=== PATIENT | female | born 1975 | race Caucasian/White ===

== ENCOUNTER 2019-09-08 18:46 | Emergency (ER) | payer BC ==
[~2019-09-08] VITALS: Ht 167.6 cm; Wt 57.3 kg
[2019-09-08 18:48] VITALS: BP 141/89
[2019-09-08 19:22] LABS: INFLUENZA TYPE A NEGATIVE FOR TYPE A (NEGATIVE); INFLUENZA TYPE B NEGATIVE FOR TYPE B (NEGATIVE)
== END 2019-09-08 19:02 | disposition home or self-care (01) ==
LOC: EMS 18:47
DX: J06.9 Acute upper respiratory infection, unspecified (principal); Z20.828 Contact with and (suspected) exposure to other viral communicable diseases
CPT/HCPCS: 87635; 87804